=== PATIENT | female | born 1955 | race Caucasian/White ===

== ENCOUNTER → 2017-02-14 | Outpatient (CLI) | payer OTHER ==
[~2017-02-14] MED LIST: BUSP-8 PO; CALC1CHW57 PO; LORA-741 PO; MEDROXYPROGESTERONE PO; MULTTAB58 PO; OXYC15TA89 PO; RXC5 PO; TRAZ50TA35 PO
--- NOTE | 2017-02-14 15:07 | MAMMOGRAPHY REPORT ---
BILATERAL DIGITAL SCREENING MAMMOGRAM TOMOSYNTHESIS WITH CAD: 02/14/2017 CLINICAL HISTORY: Routine screening. Patient has no complaints. TECHNIQUE: Breast tomosynthesis in addition to standard 2D mammography was performed. Current study was also evaluated with a Computer Aided Detection (CAD) system. COMPARISON: Comparison is made to exams dated: 02/08/2016 mammogram, 11/03/2014 mammogram, 02/01/2014 ultrasound, 02/01/2014 mammogram, 12/23/2013 mammogram, and 12/19/2012 mammogram - [facility]. BREAST COMPOSITION: The tissue of both breasts is heterogeneously dense, which may obscure small ma sses. FINDINGS: No suspicious masses, calcifications, or areas of architectural distortion are noted in e ither breast. There has been no significant interval change compared to prior exams. IMPRESSION: ACR BI-RADS CATEGORY 1: NEGATIVE There is no mammographic evidence of malignancy. A 1 year screening mammogram is recommended. The p atient will receive written notification of the results. Approximately 10% of breast cancers are not detected with mammography. A negative mammographic repor t should not delay biopsy if a clinically suggestive mass is present. Susan Cristobal M.D. ah/:02/14/2017 14:22:07 Statue Maker: Zoë CAMPOS(R)(M), [facility] letter sent: Normal 1/2 BI-RADS Code: ACR BI-RADS Category 1: Negative
== END | disposition home or self-care (01) ==
LOC: C.MAMM 10:18
PROVIDERS: ATTEND Obstetrics & Gynecology
DX: Z12.31 Encounter for screening mammogram for malignant neoplasm of breast (principal)

== ENCOUNTER 2017-05-18 00:37 | Emergency (ER) | payer OTHER ==
[~2017-05-18] VITALS: Ht 172.7 cm; Wt 51.1 kg
[~2017-05-18 00:37] MED LIST changes: -BUSP-8 PO; -OXYC15TA89 PO; -TRAZ50TA35 PO
[2017-05-18 00:40] VITALS: TEMP 36.3; Ht 172.7 cm; Wt 51.1 kg
--- NOTE | 2017-05-18 01:36 | EMERGENCY ROOM VISIT NOTE ---
ED Visit Note First contact with patient: 00:39 CHIEF COMPLAINT: Wrist injury HISTORY OF PRESENT ILLNESS: This 61-year-old patient presents to the emergency department with complaining of pain in the left wrist after FOOSH tonight. The patient is barely to move their wrist. The patient states the pain is throbbing and 5/10. No laceration, no weakness. No numbness or tingling. The patient denies any other injury. The patient is able to move their fingers and elbow without difficulty. The patient has not had a previous fracture to this wrist. The patient has taken nothing for the pain. Patient sees Dr. Perez. REVIEW OF SYSTEMS: A 6 system review of systems was performed with positives and pertinent negatives in the HPI. ALLERGIES: Sulfa, reviewed MEDICATIONS: as below PMH: Neck surgery SOCIAL HISTORY: Drug use PHYSICAL EXAM: Vital Signs: Reviewed Nurse's notes, vital signs stable. GENERAL : Pleasant female, in no acute distress, but appears to be in pain, well- developed, well-neurished. NEURO: Alert and oriented to person place and time. Normal sensation to light and sharp touch. MUSCULOSKELETAL: There is a deformity of the left wrist. There is tenderness and edema over distal radius and ulna. There is snuff box tenderness. Range of motion is limited secondary to obvious deformity. There is no tenderness of the elbow, hand or fingers. [facility] strength 3/5. Radial pulse 2+. SKIN: Normal and intact. The hand is warm and well perfused with capillary refill less than 2 seconds. EMERGENCY DEPARTMENT COURSE: I examined the patient. An X-ray of the left wrist was reviewed by myself and attending and showed fracture of the distal radius and possible ulna. A volar splint was placed under my direction and the position was satisfactory. Neurovascular status rechecked and intact. Patient was advised to follow-up with orthopedics for definitive care for her fracture. She is advised to return to the ER immediately for severe pain, numbness, tingling, worsening signs or symptoms or as needed. The patient was discharged home in good condition. DIAGNOSIS: Wrist fracture, Left DISCHARGE INSTRUCTIONS & TREATMENT: DO NOT drive, drink alcohol, operate machinery, or perform dangerous activities today. You were given medications in the ER that can affect your ability to safely function or operate a vehicle. Oxycodone (OxyIR) 5mg: Take 1-2 pills every four hours for breakthrough pain. Avoid alcohol, operating machinery or dangerous equipment, working on ladders or roofs, DRIVING, or situations where being under the influence may be dangerous. It is recommended to use an ipai-rrl-oyiwrux stool softener such as Colace, 100mg twice daily while taking this medication to avoid constipation. Ibuprofen(Motrin, Advil) may be used for fever or pain. Use 400mg every six hours as needed. Take with food. Avoid using more than 1600mg in a 24 hour period. Do not use 1600mg per day for more than three consecutive days without physician direction. Prolonged inappropriate use can lead to stomach upset or ulcers. This medication can be taken if you need to drive, work, or perform activities which may be dangerous when taking narcotic pain medication. (AND/OR) Acetaminophen(Tylenol) may be used for fever or pain. Use 500mg every six hours as needed. Avoid using more than 2000mg in a 24 hour period. This medication can be taken if you need to drive, work, or perform activities which may be dangerous when taking narcotic pain medication. Ice compresses for 20 minutes at a time four times daily for 2-3 days. Rest and elevate your injury. Do not get the splint wet. If your splint feels excessively tight, you have worsening pain, develop numbness or tingling, or your digits appear blue, loosen the madiha wrap. Then reapply the madiha wrap gently without removing the splint. If your symptoms are not quickly relieved return to the ER for re- evaluation. Continue current medications. Return to the ER immediately for any numbness, tingling, severe pain, extreme swelling in the extremity or as needed. Call your Orthopedics Saturday to arrange follow up for your injury. Current/Historical Medications Scheduled Calcium W/ Vitamins D & K (Calcium + D), 1 TAB PO DAILY Multiple Vitamin (Multivitamin), 1 TAB PO DAILY Scheduled PRN Lorazepam (Ativan), 0.5 MG PO Q6H PRN for Anxiety/Agitation Allergies Coded Allergies: Succinylcholine (Verified Allergy, Severe, MALIGNANT HYPERTHERMIA, 03/11/14 ) Latex1 -Allergic Contact Dermititis (Unverified Allergy, Intermediate, RED SKIN, 03/11/14) Sulfa Drugs (Unverified Allergy, Mild, 03/11/14) Vital Signs Date Time Temp Pulse Resp B/P (MAP) Pulse Ox O2 Delivery O2 Flow Rate FiO2 05/18/17 00:40 36.3 73 18 122/78 94 Room Air Departure Information Referrals Kenisha Bustillos D.O. (PCP) Patient Instructions [facility]
[2017-05-18] MEDS ORDERED: OXYCODONE IR HOME PACK PO ONE (01:45)
[2017-05-18 01:53] VITALS: BP 108/70; PULSE 90; O2SAT 97
--- NOTE | 2017-05-18 07:09 | DIAGNOSTIC IMAGING REPORT ---
LEFT WRIST MIN 3 VIEWS ROUTINE CLINICAL HISTORY: Left wrist pain following fall. COMPARISON: None FINDINGS: There is a moderately displaced significantly angulated distal left radial fracture which extends through the metaphysis with intra-articular extension. This is consistent with a Colles' type fracture. There is dorsal tilt of the distal component. There is a displaced fracture of the ulnar styloid with a few adjacent tiny bone fragments. Carpal bones appear intact. Soft tissue swelling is noted. IMPRESSION: 1. Moderately displaced, comminuted distal left radial fracture with dorsal tilt of the distal component consistent with a Colles' fracture. 2. Displaced ulnar styloid fracture. Electronically signed by: Francisco Hoffman M.D. 05/18/2017 7:07 AM Dictated Date/Time: 05/18/2017 7:05 AM
[2017-05-19] MEDS ORDERED: TRAZ50TA35 PO (04:17)
[2017-05-19] MEDS ORDERED: BUSP-8 PO (04:17)
[2017-05-19] MEDS ORDERED: OXYC15TA89 PO (04:17)
== END 2017-05-18 01:57 | disposition home or self-care (01) ==
LOC: C.EDB 00:37
DX: S52.502A Unspecified fracture of the lower end of left radius, initial encounter for closed fracture (principal); X58.XXXA Exposure to other specified factors, initial encounter; Y93.89 Activity, other specified

== ENCOUNTER 2017-05-19 03:18 | Emergency (ER) | payer OTHER ==
[~2017-05-19] VITALS: Ht 167.6 cm; Wt 51.1 kg
[2017-05-19 03:23] VITALS: TEMP 36.8; Ht 167.6 cm; Wt 51.1 kg
[2017-05-19] MEDS ORDERED: OXYC15TA89 PO (04:17)
[2017-05-19] MEDS ORDERED: TRAZ50TA35 PO (04:17)
[2017-05-19] MEDS ORDERED: BUSP-8 PO (04:17)
--- NOTE | 2017-05-19 04:43 | EMERGENCY ROOM VISIT NOTE ---
ED Visit Note First contact with patient: 03:36 CHIEF COMPLAINT: Wrist and foot pain HISTORY OF PRESENT ILLNESS: This 61-year-old patient presents to the emergency department with complaining of pain in the left foot and right wrist after falling yesterday. The patient is able to move their wrist and foot and has been walking without difficulties. Patient states there is a bruise to the top of her foot. Patient seen here yesterday for a fracture to her left wrist. Dr. Perez will be doing surgery on this. The patient states the pain is mild and 2/10. No laceration, no weakness. No numbness or tingling. The patient denies any other injury. The patient is able to move their fingers and elbow without difficulty. The patient has not had a previous fracture to this wrist. The patient has taken OxyIR and Motrin for the pain. Patient denies ankle pain, knee pain, elbow pain, forearm pain. No hand pain or finger pain. REVIEW OF SYSTEMS: A 6 system review of systems was performed with positives and pertinent negatives in the HPI. ALLERGIES: Sulfa, reviewed MEDICATIONS: Reviewed PMH: Neck surgery SOCIAL HISTORY: No Drug use PHYSICAL EXAM: Vital Signs: Reviewed Nurse's notes, vital signs stable. GENERAL : Pleasant female, in no acute distress, but appears to be in pain, well- developed, well-neurished. NEURO: Alert and oriented to person place and time. Normal sensation to light and sharp touch. MUSCULOSKELETAL: There is no deformity of the right wrist. There is tenderness and edema over distal ulna. There is no snuff box tenderness. Range of motion is intact. There is no tenderness of the elbow, hand or fingers. Cushion Cover Inspector strength 5/5. Radial pulse 2+. There is no visual deformity of the left foot. There is no erythema, small contusion to the top of the foot. There is no warmth. There is minimal tenderness over the top of the foot. The range of motion of the foot is not limited secondary to pain. There is no tenderness over the plantar fascia. Dorsi flexion 5/5 and Plantar flexion 5/5. The skin is intact and there are no lacerations or puncture wounds. Dorsalis pedis pulse 2+. SKIN: Normal and intact. The hand is warm and well perfused with capillary refill less than 2 seconds. EMERGENCY DEPARTMENT COURSE: I examined the patient. An X-ray of the left foot and right wrist was reviewed by myself and attending and showed no fracture. Patient was advised to follow-up as scheduled with her orthopedists and to continue Tylenol, Motrin, splint and narcotics for severe pain. She is advised to return to the ER immediately for numbness, tingling, severe pain, worsening signs or symptoms or as needed. The patient was discharged home in good condition. DIAGNOSIS: #1 right wrist injury #2 left foot injury DISCHARGE INSTRUCTIONS & TREATMENT: As below Current/Historical Medications Scheduled Buspirone Hcl (Buspirone Hcl), 20 MG PO AMPM Trazodone Hcl (Trazodone), 50 MG PO HS Scheduled PRN Oxycodone Hcl (Oxycontin), 1 TAB PO UD PRN for Pain Allergies Coded Allergies: Succinylcholine (Verified Allergy, Severe, MALIGNANT HYPERTHERMIA, 05/19/17 ) Latex1 -Allergic Contact Dermititis (Unverified Allergy, Intermediate, RED SKIN, 05/19/17) Sulfa Drugs (Unverified Allergy, Mild, 05/19/17) Vital Signs Date Time Temp Pulse Resp B/P (MAP) Pulse Ox O2 Delivery O2 Flow Rate FiO2 05/19/17 03:23 36.8 69 18 120/77 97 Room Air Departure Information Referrals Kenisha Bustillos D.O. (PCP) Patient Instructions [facility]
[2017-05-19] MEDS ORDERED: OXYCODONE IR HOME PACK PO ONE (04:45)
[2017-05-19 04:53] VITALS: BP 126/78; PULSE 71; O2SAT 95
--- NOTE | 2017-05-19 06:07 | DIAGNOSTIC IMAGING REPORT ---
RIGHT WRIST MIN 3 VIEWS ROUTINE CLINICAL HISTORY: fall, pain Right trauma COMPARISON: None. DISCUSSION: The bones and joint spaces appear intact. There is no evidence of fracture, dislocation or bony disease. There is no evidence for soft tissue swelling. IMPRESSION: Negative study. The above report was generated using voice recognition software. It may contain grammatical, syntax or spelling errors. Electronically signed by: Deng Lou M.D. 05/19/2017 6:05 AM Dictated Date/Time: 05/19/2017 6:04 AM
--- NOTE | 2017-05-19 06:09 | DIAGNOSTIC IMAGING REPORT ---
LEFT FOOT MIN 3 VIEWS ROUTINE CLINICAL HISTORY: fall, left trauma COMPARISON: None. DISCUSSION: The bones and joint spaces appear intact. There is no evidence of fracture, dislocation or bony disease. There is no evidence for soft tissue swelling. IMPRESSION: Negative study. The above report was generated using voice recognition software. It may contain grammatical, syntax or spelling errors. Electronically signed by: Deng Lou M.D. 05/19/2017 6:07 AM Dictated Date/Time: 05/19/2017 6:07 AM
== END 2017-05-19 04:53 | disposition home or self-care (01) ==
LOC: C.EDB 03:19
DX: S69.91XA Unspecified injury of right wrist, hand and finger(s), initial encounter (principal); S69.92XA Unspecified injury of left wrist, hand and finger(s), initial encounter; W19.XXXA Unspecified fall, initial encounter; Z79.899 Other long term (current) drug therapy; Z88.2 Allergy status to sulfonamides; Z88.8 Allergy status to other drugs, medicaments and biological substances; Z91.040 Latex allergy status

== ENCOUNTER → 2017-07-22 | Outpatient (CLI) | payer OTHER ==
[~2017-07-22] MED LIST changes: +BUSP-8 PO; -CALC1CHW57 PO; -LORA-741 PO; -MEDROXYPROGESTERONE PO; -MULTTAB58 PO; +OXYC15TA89 PO; -RXC5 PO; +TRAZ50TA35 PO
== END | disposition home or self-care (01) ==
LOC: C.PAPS 14:02
PROVIDERS: ATTEND Obstetrics & Gynecology
DX: Z01.411 Encounter for gynecological examination (general) (routine) with abnormal findings (principal); R87.610 Atypical squamous cells of undetermined significance on cytologic smear of cervix (ASC-US); N95.2 Postmenopausal atrophic vaginitis

== ENCOUNTER → 2018-02-20 | Outpatient (CLI) | payer OTHER ==
--- NOTE | 2018-02-21 14:19 | MAMMOGRAPHY REPORT ---
BILATERAL DIGITAL SCREENING MAMMOGRAM TOMOSYNTHESIS WITH CAD: 02/20/2018 CLINICAL HISTORY: Routine screening. Patient has no complaints. TECHNIQUE: Breast tomosynthesis in addition to standard 2D mammography was performed. Current study was also evaluated with a Computer Aided Detection (CAD) system. COMPARISON: Comparison is made to exams dated: 02/14/2017 mammogram, 02/08/2016 mammogram, 11/03/2014 m ammogram, 02/01/2014 mammogram, 12/23/2013 mammogram, and 12/07/2011 mammogram - [facility]ter. BREAST COMPOSITION: The tissue of both breasts is heterogeneously dense, which may obscure small mas ses. FINDINGS: No suspicious masses, calcifications, or areas of architectural distortion are noted in ei ther breast. There has been no significant interval change compared to prior exams. IMPRESSION: ACR BI-RADS CATEGORY 1: NEGATIVE There is no mammographic evidence of malignancy. A 1 year screening mammogram is recommended. The pa tient will receive written notification of the results. Approximately 10% of breast cancers are not detected with mammography. A negative mammographic report should not delay biopsy if a clinically suggestive mass is present. Susan Cristobal M.D. ah/:02/20/2018 12:32:29 Change Management Expert: Theresa CAMPOS(R)(M), [facility] letter sent: Normal 1/2 BI-RADS Code: ACR BI-RADS Category 1: Negative
== END | disposition home or self-care (01) ==
LOC: C.MAMM 09:28
PROVIDERS: ATTEND Obstetrics & Gynecology
DX: Z12.31 Encounter for screening mammogram for malignant neoplasm of breast (principal)

== ENCOUNTER 2024-06-01 05:44 | Inpatient (IN) ==
--- NOTE | 2024-05-27 16:40 | Anesthesiology Consultation ---
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 She has very minimal nonspecific memory problems with normal neuropsychological testing. Recommendations: 1. Patient is doing well and we will keep same for now. 2. Call if worse otherwise follow-up in 1 year. Plan Details Consults Requested none [facility] internal medicine preop note: low to moderate risk for upcoming surgery History Surgery Operation Date: 06/01/24 10:05 Proposed Procedures p L4-L5 Decompression and Fusion, Spinal Cord Monitoring - Ankit Gordillo, Height/Weight Height: 5 ft 5 in Weight: 51.256 kg Allergies Allergy/AdvReac Type Severity Reaction Status Date / Time succinylcholine Allergy Severe MALIGNANT Verified 05/26/24 13:50 HYPERTHERMIA latex Allergy Intermediate RED SKIN Verified 05/26/24 13:51 Sulfa (Sulfonamide Allergy Mild Unknown Verified 05/26/24 13:51 Antibiotics) Medications Home Medications Medication Instructions Recorded Confirmed Last Taken alprazolam 0.5 mg tablet 0.5 mg PO .TAKE 1 TABLET DAILY 08/28/19 05/26/24 Unknown calcium carbonate (Calcium 500) 500 mg PO DAILY 08/28/19 05/26/24 Unknown doxycycline hyclate 100 mg capsule 100 mg PO QAM rosacea 08/28/19 05/26/24 Unknown multivitamin (Multiple Vitamins 1 tab PO DAILY 08/28/19 05/26/24 Unknown tablet) trazodone 50 mg tablet 50 mg PO HS sleep 09/02/19 05/26/24 Unknown Bacillus coagulans [Probiotic (B. 1 tab PO DAILY 08/05/23 05/26/24 Unknown coagulans)] vitamin E mixed 200 unit tablet 1 unit PO DAILY 08/05/23 05/26/24 Unknown estradiol 2 mg (7.5 mcg/24 hour) 1 vag ring vaginal Q90D #1 ea 03/06/24 05/26/24 Unknown vaginal ring (Estring) fluconazole 150 mg tablet 150 mg PO Q48H 6 days #3 tabs 03/13/24 05/26/24 Unknown smoynfjmeu-pzmfosufpkfgu-puetcaab 1 cap PO Q6H PRN pain #10 caps 03/21/24 05/26/24 Unknown 50 mg-300 mg-40 mg capsule (Fioricet) omega-3 fatty acids 1,000 mg PO DAILY 05/26/24 05/26/24 Unknown turmeric 400 mg capsule 400 mg PO QAM 05/26/24 05/26/24 Unknown Past Medical History Medical History (Updated 05/27/24 @ 16:38 by Brenden Casas MD) Encounter for pre-operative examination History of anesthesia reaction states d/t her Myotonia congenita succinylcholine is contraindicated and acts like a Malignant hyperthermia reaction *MH precautions used with 02/2014 ACDF done at [facility]* Anxiety Rosacea 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, [place] Neuro History of melanoma Atypical ductal hyperplasia of breast benign; hx breast bx Past Family History Family History Mother Anxiety Breast cancer Cancer Diabetes Tremor Colonic polyp Hypertension Colorectal cancer Brother Anxiety Multiple sclerosis Myotonia Grandmother (Maternal) Breast cancer Father Cancer Diabetes Hypertension Other History of melanoma Denies family history of Stroke Asthma Past Surgical History Surgical History Hx of colonoscopy Hx of breast augmentation Hx of blepharoplasty Hx of laparoscopy (1984) [facility] [place] - had a reaction similar to Malignant hyperthermia prior to having myotonia congenita dx History of surgery on wrist History of neck surgery C5- C6- full ROM History of Mohs micrographic surgery for skin cancer S/P tonsillectomy S/P shoulder surgery H/O cosmetic surgery S/P breast biopsy S/P dilatation and curettage Social History Smoking Status: Never smoker Do You Dip or Chew Tobacco: No Hx Alcohol Use: Yes alcohol intake frequency: a few times a week Hx Substance Use: Yes (very rare use- 1-2 times per year) substance use type: marijuana Last Used Substance Other:: ~8 mos ago Testing Laboratory Results Laboratory Tests 05/26/24 11:14 WBC 4.10 L Hgb 13.3 Hct 38.6 Plt Count 161 PT 10.4 INR 1.0 APTT 25 Sodium 136 Potassium 4.1 Chloride 101 Carbon Dioxide 29 BUN 15 Creatinine 0.90 Glucose 105 H Electrocardiogram Date: 05/26/24 DICTATED BY: Nas Villanueva MD Test Reason : Blood Pressure : */* mmHG Vent. Rate : 60 BPM Atrial Rate : 60 BPM P-R Int : 150 ms QRS Dur : 74 ms QT Int : 398 ms P-R-T Axes : 81 80 76 degrees QTcB Int : 398 ms Normal sinus rhythm Right atrial enlargement Borderline ECG When compared with ECG of 10-Mar-2014 15:42, MANUAL COMPARISON REQUIRED PREVIOUS ECG IS INCOMPATIBLE Confirmed by Nas Villanueva ([id number]) on 05/27/2024 8:26:30 AM
--- OUTSIDE RECORDS SUMMARY | 2024-06-01 05:49 | External Medical Summary | Summary of Care ---
Author Name Unknown Organization [facility] Address [address] [place] [address] Phone [phone] Care Team Providers Care Fun House Attendant Name Role Phone Kirk Snider MD Primary Care Provider + Encounter Details Date Type Department Care Team (Late st Contact Info) Description 05/28/2024 Orders Only General Internal Medicine [facility] [address] [place] [address] Kirk Snider MD [address] [facility] [place] [address] Allergies Active Allergy Reactions Criticality Noted Date Comments Adhesive Tape Rash 03/28/2016 Succinylcholine Chloride Cough 04/22/2008 Reaction as malignant hyperthermia.as myotonia congenita Latex 03/06/2014 Rash with topical. Sulfa Antibiotics Edema airway High 02/16/2013 documented as of this encounter (statuses as of 05/28/2024) Medications Medication Sig Dispensed Refills Start Date End Date Status ALPRAZolam (XANAX) 0.5 MG Tablet Take 1 Tablet by mouth. Take one tablet as needed for anxiety Active traZODone (DESYREL) 50 MG Tablet Take 1 Tablet by mouth at bedtime. Active XIIDRA 5 % SOLN 10/30/2017 Active fluticasone (FLONASE) 50 MCG/ACT nasal spray Administer 2 Sprays into each nostril daily. 1 Bottle 11 06/17/2019 Active Additional Information Patient not taking.Reported on 05/26/2024 Probiotic Daily Oral Capsule Take 1 Capsule by mouth in the morning. Active Azelaic Acid 15 % External Gel (Finacea)Indication s:Rosacea Apply to face daily 50 g 3 01/17/2021 Active metroNIDAZOLE 0.75 % External Cream (MetroCream) Apply topically to affected area 2 times a day. Apply to face 45 g 2 05/10/2021 Active Citracal Petites/Vitamin D 200-250 MG-UNIT Oral Tablet (Calcium Citrate-Vitamin D) Active Mometasone Furoate 0.1 % External Cream Apply to affected areas on body twice daily as needed 15 g 2 07/10/2022 Active Womens 50+ Multi Vitamin/Min Oral Tablet Take by mouth daily. Active Betamethasone Dipropionate Aug 0.05 % External Cream (Diprolene AF) Apply to affected area on chest twice daily 30 g 1 02/22/2023 Active Triamcinolone Acetonide 0.1 % External Lotion (Aristocort) Apply to affected area at central chest twice daily as needed 60 mL 02/28/2023 Active Tretinoin 0.05 % External Cream (Retin-A)Indication s:Rhytides Apply pea-sized amount to face nightly 45 g 5 02/28/2023 Active Ventolin HFA 108 (90 Base) MCG/ACT Inhalation Aerosol SolutionIndications :Acute bronchitis, antibiotics not indicated Inhale 2 Puffs by mouth every 4 hours as needed for Wheezing or Other (cough). 18 g 1 07/30/2023 Active Montelukast Sodium 10 MG Oral Tablet (Singulair)Indicati ons:Allergic sinusitis Take 1 Tablet by mouth at bedtime. 90 Tablet 1 07/30/2023 Active Additional Information Patient not taking.Reported on 12/10/2023 Estradiol 0.1 MG/GM Vaginal Cream (Estrace) 1 g. Use twice a week 11/18/2023 Active Betamethasone Dipropionate Aug 0.05 % External Cream (Diprolene AF) Apply to affected areas on trunk and extremities twice daily as needed 50 g 1 02/19/2024 Active Doxycycline Hyclate 50 MG Oral Capsule (Vibramycin)Indicat ions:Rosacea Take 1 capsule in the AM and 1 capsule in the PM for flares. Otherwise, take 1 capsule daily. 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 Atrial septal aneurysm 09/24/2018 Trace aortic regurgitation by prior echocardiogr am 09/08/2018 LOUIS (generalized anxiety disorder) 07/22/2018 History of basal cell carcinoma 02/16/2013 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 documented as of this encounter (statuses as of 05/28/2024) Immunizations Name Administration Dates Next Due COVID-19 mRNA, LNP-s, No Pre serve, 2-Dose Series ([employer]) 08/07/2021,01/06/2021,12/16/2020 COVID-19, MRNA-LNP, 23-24, P F, 30 MCG/0.3 mL, 12 YRS AND ABOVE, IM (PFIZER-Comirnaty) 08/12/2023 Covid-19, Mrna, Lnp-s, Pf, B ivalent, 30 Mcg, IM, 12 yrs and above (Pfizer) 07/04/2022 Pneumococcal Conjugate Vacci ne, 20-valent ([id number]) 07/30/2022 Seasonal Influenza Virus Vac cine, Unspecified Formulation 07/30/2022,07/27/2021,08/04/2020 Seasonal Influenza, PF, 6 M & above, IM , (FluLaval or Fluzone) 08/12/2023,07/27/2021,08/07/2018 Seasonal Influenza, Quadriva lent, No Preserve, IM 11/04/2017,11/01/2016 Seasonal Influenza, Quadriva lent, No Preserve, Mdck 08/04/2020,08/20/2019 Seasonal Influenza, Split, I IV3, With Preserve, Inj 07/16/2016,06/20/2015 TDAP (age 10 and older)(Boostrix) 02/01/2016 Zoster Vaccine Recombinant (Shingrix) 05/17/2018 ,02/07/2018 documented as of this encounter Social History Tobacco Use Types Packs/Day Years Used Date Smoking Tobacco: Never Smokeless Tobacco: Never Comments:no passive smoke Alcohol Use Standard Drinks/Week Comments Yes 0 (1 standard drink = 0.6 oz pur e alcohol) 7 drinks a week PHQ-2 Answer Date Recorded PHQ Adult Total Score 0 12/04/2022 Hunger Vital Sign Answer Date Recorded Within the past 12 months, y ou worried that your food would run out before you got the money to buy more. Never true 11/11/19 23 Within the past 12 months, t he food you bought just didn't last and you didn't have money to get more. Never true 11/11/2022 Utilities Answer Date Recorded Do you have trouble paying y our heating, water, or electric bill? (Adult - for ages 18 years and over) Not on file 04/07/2024 Is your family able to pay t he heat, water, or electric bill? (Household - for ages 0-17 years) Not on file 04/07/2024 Does your family have access to good internet? (Household - for ages 0-17 years) Not on file 04/07/2024 Social Connections Answer Date Recorded How often do you feel lonely or isolated from those around you? (Adult - for ages 18 years and over) Not on file 04/07/2024 Sex and Gender Information Value Date Recorded Sex Assigned at Female 04/28/2019 1:28 PM EDT Gender Identity Female 04/28/2019 1:28 PM EDT Sexual Orientation Straight 04/28/2019 1: 28 PM EDT Job Start Date Occupation Industry Not on file Not on file Not on file documented as of this encounter Plan of Treatment Upcoming Encounters Date Type Department Care Team (Latest Contact Info) Description 07/23/2024 1:00 PM EDT Office Visit Dermatology [facility] [address] [place] [address] Mellissa Samuel MD [address] [facility] [place] [address] 08/10/2024 3:00 PM EDT Imaging Radiology, [address] [place] [address] 09/04/2024 9:30 AM EST Hospital Encounter ENDO [facility], Endoscopy Room [facility] [address] [place] [phone] Main Benites MD [address] [place] [address] 09/04/2024 9:30 AM EST - 09/04/2024 10:00 AM EST Surgery ENDO [facility], Endoscopy Room [facility] [address] [place] [id number] Main Benites MD [address] [place] [address] COLONOSCOPY FLEXIBLE PROXIMAL DIAGNOSTIC 10/06/2024 8:00 AM EST Office Visit Rheumatology [place] [id number] [facility] [place] [address] Jose Hopper CRNP [address] [place] [address] [place] [address] 12/15/2024 8:40 AM EST Office Visit General Internal Medicine [facility] [address] [facility] [place] [address] Kirk Snider MD [address] [place] [address] 02/04/2025 1:30 PM EDT Office Visit Dermatology [place] [address] [facility] [place] [address] Mellissa Samuel MD [address] [place] [address] Scheduled Procedures Name Priority Associated Diagnoses Date/Ti me COLONOSCOPY FLEXIBLE PROXIMAL DIAGNOSTIC Recall Family history of colon cancer Family history of colonic polyps 09/04/2024 9:30 AM EST Health Maintenance Due Date Last Done Comments Cologuard 2002 Fecal Occult Blood Test 2002 Sigmoidoscopy 2002 Adult Wellness Visit 2023 Depression Monitoring 12/04/2023 12/04/2022 COVID-19 Vaccine ( season) 2023 08/12/2023, 08/12/2023, 07/04/2022, Additional history exists Colonoscopy 01/15/2024 01/14/2019, 12/20, 09/30/2013, Additional history exists Colorectal Cancer Screening 01/15/2024 Influenza Vaccine (FLU shot) (#1) 2024 08/12/2023, 08/12/2023, 08/12/2023, Additional history exists DXA Scan 07/02/2024 07/02/2022, 06/21, 06/01/2020, Additional history exists Mammogram 09/17/2024 09/17/2023, 08/22, 09/04/2022, Additional history exists DTaP,Tdap,and Td Vaccines (2 - Td or Tdap) 01/31/2026 02/01/2016 Lipid Panel 10/24/2028 10/24/2023, 09/20, 07/02/2022, Additional history exists Zoster Vaccines Completed 05/17/2018, 02/07/2018 RETIRED - COLONOSCOPY-EVERY 5 YRS AGES 18-100 Discontinued 01/14/2019, 01/14/2019, 09/30/2013, Additional history exists Pap Smear Discontinued 07/26/2022, 12/19, 07/22/2017, Additional history exists Pneumococcal Vaccine: 65+ Years Completed 07/30/2022 VITAMIN D LEVEL ONCE IN A LIFETIME-USE SMARTSET# [id number] Completed 10/24/2023, 10/08/2022, 07/02/2022, Additional history exists HPV (Gardasil) Vaccine Aged Out No lo nger eligible based on patient's age to complete this topic Hepatitis B Vaccine Aged Out No longe r eligible based on patient's age to complete this topic MENINGOCOCCAL (MENACTRA/MENVEO) Aged Out No longer eligible based on patient's age to complete this topic documented as of this encounter Medical Devices Not on filedocumented as of this encounter Procedures Procedure Name Priority Date/Time Associated Diagnosis Comments CHEMISTRY-OUTSIDE Routine 05/26/2024 documented in this encounter Results * (ABNORMAL) CHEMISTRY-OUTSIDE (05/26/2024) Not all results display below - see scan for full detail SCAN INCLUDES: BMP, HA1C, PT INR, PTT, CBC, UA, BLOOD TYPE AND SCREEN OUTSIDE LAB (SEE SCANNED REPORT) CREATININE-OUTSI DE LAB 0.90 0.6 - 1.2 MG/DL OUTSIDE LAB (SEE SCANNED REPORT) EGFR-OUTSIDE LAB 66.6 ML/MIN OUT SIDE LAB (SEE SCANNED REPORT) POTASSIUM-OUTSID E LAB 4.1 3.5 - 5.1 MMOL/L OUTSIDE LAB (SEE SCANNED REPORT) GLUCOSE-OUTSIDE LAB 105(A) 70 - 99 MG/DL OUTSIDE LAB (SEE SCANNED REPORT) HOURS FASTING OUTSID E LAB (SEE SCANNED REPORT) TRIGLYCERIDES-OU TSIDE LAB OUTSIDE LAB (SEE SCANNED REPORT) CHOLESTEROL-OUTS JORGITO LAB OUTSIDE LAB (SEE SCANNED REPORT) HDL-OUTSIDE LAB OUTS [place] LAB (SEE SCANNED REPORT) CHOL/HDL RATIO-OUTSIDE LAB OUTSIDE LAB (SEE SCANNED REPORT) LDL (CALCULATED)-OUT SIDE LAB OUTSIDE LAB (SEE SCANNED REPORT) LDL (DIRECT MEASURE)-OUTSIDE LAB OUTSIDE LAB (SEE SCANNED REPORT) HEMOGLOBIN, [id number] LAB 5.3 4.5 - 5.6 % OUTSIDE LAB (SEE SCANNED REPORT) PHOSPHORUS-OUTSI DE LAB OUTSIDE LAB (SEE SCANNED REPORT) PTH-OUTSIDE LAB OUTS JORGITO LAB (SEE SCANNED REPORT) MICROALBUMIN RATIO-OUTSIDE LAB OUTSIDE LAB (SEE SCANNED REPORT) PROTEIN, UA-OUTSIDE LAB NEGATIVE NEGATIVE OUTSIDE LAB (SEE SCANNED REPORT) HGB 13.3 12.0 - 16.0 G/DL OUTSIDE LAB (SEE SCANNED REPORT) 05/26/2024 Ankit Gordillo DO LABORATORY OUTSIDE LAB (SEE SCANNED REPORT) documented in this encounter Care Teams Fun House Attendant Relationship Specialty Start Date End Date Kirk Snider MD [address] [place] [address] PCP - General Internal Medicine 07/22/18 documented as of this encounter
--- OUTSIDE RECORDS SUMMARY | 2024-06-01 05:50 | External Medical Summary | Summary of Care ---
Author Name Unknown Organization [facility] Address [address] [facility] [place] [address] Phone [phone] Care Team Providers Care Sociocultural Anthropology Professor Name Role Phone Kirk Snider MD Primary Care Provider + Reason for Visit * Reason Comments pre-op exam Surgery with Dr. Lowell Gordillo on 06/01 for laminectomy infusion of L4/L5. Encounter Details Date Type Department Care Team (Late st Contact Info) Description 05/26/2024 2:40 PM EDT Office Visit General Internal Medicine [facility] [address] [facility] [place] [address] Heide Espinoza PA-C [address] [facility] [place] [address] Pre-op exam*; Spinal stenosis of lumbar region with neurogenic claudication; Spondylolisthesis of lumbar region Allergies Active Allergy Reactions Criticality Noted Date Comments Adhesive Tape Rash 03/28/2016 Succinylcholine Chloride Cough 04/22/2008 Reaction as malignant hyperthermia.as myotonia congenita Latex 03/06/2014 Rash with topical. Sulfa Antibiotics Edema airway High 02/16/2013 documented as of this encounter (statuses as of 05/26/2024) Medications Medication Sig Dispensed Refills Start Date [...] Active Azelaic Acid 15 % External Gel (Finacea)Indicati ons:Rosacea Apply to face daily 50 g 3 [...] 02/28/2023 Active Tretinoin 0.05 % External Cream (Retin-A)Indicati ons:Rhytides Apply pea-sized amount to face nightly 45 g 5 02/28/2023 Active Ventolin HFA 108 (90 Base) MCG/ACT Inhalation Aerosol SolutionIndicatio ns:Acute bronchitis, antibiotics not indicated Inhale 2 Puffs by mouth every 4 hours as needed for Wheezing or Other (cough). 18 g 1 07/30/2023 Active Montelukast Sodium 10 MG Oral Tablet (Singulair)Indica tions:Allergic sinusitis Take 1 Tablet by mouth at [...] Active Doxycycline Hyclate 50 MG Oral Capsule (Vibramycin)Indic ations:Rosacea Take 1 capsule in the AM and 1 capsule in the PM for flares. Otherwise, take 1 capsule daily. 360 Capsule 04/08/2024 Active acetaZOLAMIDE 125 MG Oral Tablet (Diamox)Indicatio ns:Altitude sickness prophylaxis Take one pill by mouth twice a day day before trip and take until at maximum altitude for 2 days 8 Tablet 12/10/2023 4 Discontinue d(Medicatio n List Clean Up) predniSONE 10 MG Oral Tablet (Deltasone) Take 6 tabs x 2 days,5 tabs x 2 days,4 tabs x 2 days,3 tabs x 2 days,2 tabs x 2 days,1 tab x 2 days 42 Tablet 02/19/2024 4 Discontinue d(Medicatio n List Clean Up) documented as of this encounter (statuses as of 05/26/2024) Active Problems Problem Noted Date Diagnosed Date [...] as of this encounter (statuses as of 05/26/2024) Resolved Problems Problem Noted Date Diagnosed Date Resolved Date Abnormal mammogram 05/10/2021 4 Major depressive disorder, r ecurrent, in partial remission 05/10/2021 12/10/2023 High risk for fracture due t o osteoporosis by DEXA scan 06/02/2020 12/04/2022 Major depressive disorder, s matthew episode, in partial remission 04/28/2019 12/10/2023 Diastolic dysfunction 09/08/20182019 Blepharitis of both eyes 03/15/201606/2019 ADVANCE DIRECTIVE INFORMATION 04/22/2008 10/23/2018 Overview: No, Advance Directive brochure given to patient. documented as of this encounter (statuses as of 05/26/2024) Immunizations Name Administration Dates Next Due COVID-19 mRNA, LNP-s, No Pre serve, 2-Dose Series ([employer]) 08/07/2021,01/06/2021,12/16/2020 COVID-19, MRNA-LNP, 23-24, P F, 30 MCG/0.3 mL, 12 YRS AND ABOVE, IM [email or web address] 08/12/2023 Covid-19, Mrna, Lnp-s, Pf, B ivalent, 30 Mcg, IM, 12 yrs and above (Pfizer) 07/04/2022 Pneumococcal Conjugate Vacci ne, 20-valent (Dtyelnd15) 07/30/2022 Seasonal Influenza Virus Vac cine, Unspecified [...] on file documented as of this encounter Last Filed Vital Signs Vital Sign Reading Time Taken Comments Blood Pressure 120/76 05/26/2024 2:42 PM EDT Pulse 66 05/26/2024 2:42 PM EDT Temperature 36.8 C (98.2 F) 05/26/2024 2:42 PM ED T Respiratory Rate 16 05/26/2024 2:42 PM EDT Oxygen Saturation 98% 05/26/2024 2:42 PM EDT Inhaled Oxygen Concentration - - Weight 52.5 kg (115 lb 11.2 oz) 05/26/2024 2:42 PM EDT Height 164.8 cm (5' 4.88") 05/26/2024 2:42 PM EDT Body Mass Index 19.32 05/26/2024 2:42 PM EDT documented in this encounter Progress Notes * Heide Espinoza PA-C - 05/26/2024 2:56 PM EDT Preoperative Risk Assessment Note NAME: Leny Cast : 1955 DATE: 05/26/2024 Preoperative Risk Assessment Note Referred by: Dr. Gordillo Pre-operative evaluation for: Laminectomy fusion of L4/5. Date of procedure: 06/01/24. Brief History of Present Illness: Leny Cast 68 year old female has a past medical history of Abnormal mammogram (05/10/2021), Anxiety, Basal cell carcinoma of skin, Blepharitis of both eyes with rosacea, Diastolic dysfunction (09/08/2018), High risk for fracture due to osteoporosis by DEXA scan (06/02/2020), Myotonia congenita, Rosacea, Trace aortic regurgitation by prior echocardiogram (09/08/2018), and Vitiligo. Major Risk Factors for Cardiac Events: History of GA, cardiac revascularization, cardiac bypass: No History of cerebrovascular accident or TIA: No History of systolic heart failure: No History of insulin-dependent diabetes: No History of chronic kidney disease (creatinine greater than 2): No Anesthesia History: Anesthesia reaction: Yes, 1985 - succinylcholine. Concern for malignant hyperthermia at the time but ended up with myotonia congenita. History of surgical complications: Denies. Personal history of venous thromboembolic disease: Denies. Functional Assessment: They can walk up a flight of stairs, walk two blocks at a moderate pace, do heavy house work like vacuuming, and grocery shop. The patient's functional status is good (greater than 4 METS). Can take care of self, such as eat, dress, or use the toilet=1MET Can walk to block or go up a flight of steps=4 METs Can do heave housework=4-10 METs Can participate in strenuous sports=>10 METs} Obstructive Sleep Apnea: History of JUDI? No Current active medical problems: I have review and updated past medical history, past surgical history, past family history and social history. Current Outpatient Medications Medication Sig Dispense Refill ALPRAZolam (XANAX) 0.5 MG Tablet Take 1 Tablet by mouth. Take one tablet as needed for anxiety traZODone (DESYREL) 50 MG Tablet Take 1 Tablet by mouth at bedtime. XIIDRA 5 % SOLN Probiotic Daily Oral Capsule Take 1 Capsule by mouth in the morning. Azelaic Acid 15 % External Gel (Finacea) Apply to face daily 50 g 3 metroNIDAZOLE 0.75 % External Cream (MetroCream) Apply topically to affected area 2 times a day. Apply to face 45 g 2 Citracal Petites/Vitamin D 200-250 MG-UNIT Oral Tablet (Calcium Citrate-Vitamin D) Mometasone Furoate 0.1 % External Cream Apply to affected areas on body twice daily as needed 15 g 2 Womens 50+ Multi Vitamin/Min Oral Tablet Take by mouth daily. Betamethasone Dipropionate Aug 0.05 % External Cream (Diprolene AF) Apply to affected area on chesttwice daily 30 g 1 Triamcinolone Acetonide 0.1 % External Lotion (Aristocort) Apply to affected area at central chest twice daily as needed 60 mL 0 Tretinoin 0.05 % External Cream (Retin-A) Apply pea-sized amount to face nightly 45 g 5 Ventolin HFA 108 (90 Base) MCG/ACT Inhalation Aerosol Solution Inhale 2 Puffs by mouth every 4 hours as needed for Wheezing or Other (cough). 18 g 1 Estradiol 0.1 MG/GM Vaginal Cream (Estrace) 1 g. Use twice a week Betamethasone Dipropionate Aug 0.05 % External Cream (Diprolene AF) Apply to affected areas on trunk and extremities twice daily as needed 50 g 1 Doxycycline Hyclate 50 MG Oral Capsule (Vibramycin) Take 1 capsule in the AM and 1 capsule in the PM for flares. Otherwise, take 1 capsule daily. 360 Capsule 0 fluticasone (FLONASE) 50 MCG/ACT nasal spray Administer 2 Sprays into each nostril daily. (Patient not taking: Reported on 05/26/2024) 1 Bottle 11 Montelukast Sodium 10 MG Oral Tablet (Singulair) Take 1 Tablet by mouth at bedtime. (Patient not taking: Reported on 12/10/2023) 90 Tablet 1 No current facility-administered medications for this visit. Review of Systems: Review of Systems Constitutional: Negative for chills and fever. Respiratory: Negative for shortness of breath. Cardiovascular: Negative for chest pain. Gastrointestinal: Negative for diarrhea, nausea and vomiting. Genitourinary: Negative for difficulty urinating and hematuria. Neurological: Negative for dizziness and headaches. Physical exam: BP 120/76 | Pulse 66 | Temp 36.8 C (98.2 F) (Tympanic) | Resp 16 | Ht 1.648 m (5' 4.88") | Wt 52.5 kg (115 lb 11.2 oz) | LMP 01/17/2010 | SpO2 98% | BMI 19.32 kg/m | BSA 1.55 m I have reviewed most recent labs and EKG. There are no diagnoses linked to this encounter. Revised Cardiac Risk Index (RCRI): 1. High-risk type of surgery (examples include vascular and any open intraperitoneal or intrathoracic procedures). No 2. History of ischemic heart disease (history of myocardial infarction or positive exercise test, current compliant of chest pain considered to be secondary to myocardial ischemia, use of nitrate therapy, or ECG with pathological Q waves; do not count prior coronary revascularization procedure unless one of the other criteria for ischemic heart disease is present). No 3. History of heart failure. No 4. History of cerebrovascular disease. No 5. Diabetes mellitus requiring treatment with insulin. No 6. Preoperative serum creatinine >2.0. No Pt has revised cardiac index score of No Risk Factors- 0.4% (95% CI: 0.1-0.8) for the surgery scheduled. Patient is low for the listed procedure. Heide Espinoza PA-C 05/26/2024 2:56 PM documented in this encounter Nursing Notes * Vero Aquino MED ASSIST - 05/26/2024 2:44 PM EDT Chief Complaint Patient presents with pre-op exam Surgery with Dr. Magdy Gordillo on 06/01 for laminectomy infusion of L4/L5. documented in this encounter Plan of Treatment Upcoming Encounters Date Type Department Care Team (Latest Contact Info) Description 07/23/2024 1:00 PM EDT Office Visit Dermatology [facility] [place] [address] [place] [id number] Mellissa Samuel MD [address] [place] [address] 08/10/2024 3:00 PM EDT Imaging Radiology, [address] [place] [address] 09/04/2024 9:30 AM EST Hospital Encounter ENDO [facility], Endoscopy Room [facility] [address] [place], [place] [id number] Main Benites MD [address] [place] [address] 09/04/2024 9:30 AM EST - 09/04/2024 10:00 AM EST Surgery ENDO [facility], Endoscopy Room [facility] [address] [place] [phone] Main Benites MD [address] [place] [address] COLONOSCOPY FLEXIBLE PROXIMAL DIAGNOSTIC 10/06/2024 8:00 AM EST Office Visit Rheumatology [address] [place] [address] Jose Hopper CRNP [address] [place] [address] [place] [address] 12/15/2024 8:40 AM EST Office Visit General Internal Medicine [facility] [address] [place] [address] Kirk Snider MD [address] [place] [address] 02/04/2025 1:30 PM EDT Office Visit Dermatology [facility] [address] [place] [address] Mellissa Samuel MD [address] [facility] [place] [address] Scheduled Procedures Name Priority Associated Diagnoses Date/Ti me COLONOSCOPY FLEXIBLE PROXIMAL DIAGNOSTIC Recall Family history of colon cancer Family history of colonic polyps 09/04/2024 9:30 AM EST Health Maintenance Due Date Last Done Comments Cologuard 2002 Fecal Occult Blood Test 2002 Sigmoidoscopy 2002 Depression Monitoring 12/04/2023 12/04/2022 COVID-19 Vaccine ( [...] D LEVEL ONCE IN A LIFETIME-USE SMARTSET# 90028 Completed 10/24/2023, 10/08/2022, 07/02/2022, Additional history exists [...] Not on filedocumented as of this encounter Visit Diagnoses Diagnosis Pre-op exam- Primary Preoperative examination, unspecified Spinal stenosis of lumbar region with neurogenic claudication Spinal stenosis, lumbar region, with neurogenic claudication Spondylolisthesis of lumbar region Acquired spondylolisthesis Family history of colon cancer Family history of malignant neoplasm of gastrointestinal tract Family history of colonic polyps documented in this encounter Care Teams Sociocultural Anthropology Professor Relationship Specialty Start Date End Date Kirk Snider MD [address] [facility] [place] [address] PCP - General Internal Medicine 07/22/18 documented as of this encounter
[2024-06-01] MEDS: LR 60ML/HR IV SCH (06:44)
[2024-06-01] MEDS: VANCOMYCIN HCL 750 MG in SODIUM CHLORIDE 0.9% 250 ML IV SCH (06:44)
[2024-06-01] MEDS: GABAPENTIN 300 MG CAP PO SCH (06:45)
[2024-06-01] MEDS: ACETAMINOPHEN 500 MG TAB PO SCH (06:45)
[2024-06-01] MEDS ORDERED: HYDROmorphone INJ 1 MG/ML SYRINGE IV PRN ×2 (06:53→12:15)
[2024-06-01] MEDS ORDERED: ePHEDrine sulfate 50 MG/ML AMP IV PRN (06:53)
[2024-06-01] MEDS ORDERED: PROMETHAZINE HCL 6.25 MG in SODIUM CHLORIDE 0.9% 50 ML IV PRN (06:53)
[2024-06-01] MEDS ORDERED: ATROPINE SULFATE 0.1 MG/ML 10ML SYR IV PRN (06:53)
[2024-06-01] MEDS ORDERED: ONDANSETRON INJ 2 MG/ML 2 ML VIAL IV PRN ×2 (06:53→12:15)
[2024-06-01] MEDS ORDERED: PROPOFOL IV EMULSION 10 MG/ML 100 ML VIAL IV ONE (07:12)
[2024-06-01] MEDS ORDERED: MIDAZOLAM HCL 1 MG/ML 2ML VIAL ONE (07:18)
[2024-06-01] MEDS ORDERED: fentaNYL citrate PF 100 MCG/2 ML VIAL ONE (07:18)
[2024-06-01] MEDS ORDERED: DexMEDEtomidine HCL IV 100 MCG/ML VIAL IV ONE (07:31)
[2024-06-01] MEDS ORDERED: LIDOCAINE 2% 20 MG/ML 5 ML SYR IV ONE (07:35)
[2024-06-01] MEDS ORDERED: diphenhydrAMINE 50 MG/ML VIAL ONE (07:35)
[2024-06-01] MEDS ORDERED: GLYCOPYRROLATE 0.2 MG/ML VIAL ONE ×2 (07:35→09:35)
[2024-06-01] MEDS ORDERED: ROCURONIUM BROMIDE 10 MG/ML 5 ML VIAL IV ONE ×2 (07:35→09:23)
[2024-06-01] MEDS ORDERED: ONDANSETRON INJ 2 MG/ML 2 ML VIAL ONE (07:35)
[2024-06-01] MEDS ORDERED: DEXAMETHASONE SOD INJ 4 MG/ML VIAL ONE (07:35)
[2024-06-01] MEDS ORDERED: PROPOFOL IV EMULSION 10 MG/ML 20 ML VIAL IV ONE (07:35)
--- NOTE | 2024-06-01 07:35 | History & Physical Bridge Note ---
Date of Service June 01, 2024 History & Physical Bridge Note I have examined the patient, reviewed the History & Physical and in the interval since the performance of the History & Physical I have noted the following changes of clinical significance: no changes noted
--- NOTE | 2024-06-01 07:36 | History & Physical Report ---
Date of Service June 01, 2024 Assessment & Plan (1) Neurogenic claudication due to lumbar spinal stenosis: Plan: L4-L5 decompression and fusion History of Present Illness Chief Complaint: For the back and leg pain Primary Care Provider: Kirk Snider MD This is a 70-year-old female well-known with presents with chronic persistent back and leg pain and failing course of nonoperative care is here for surgical intervention. Allergies Allergy/AdvReac Type Severity Reaction Status Date / Time succinylcholine Allergy Severe MALIGNANT Verified 06/01/24 06:12 HYPERTHERMIA latex Allergy Intermediate RED SKIN Verified 06/01/24 06:12 Sulfa (Sulfonamide Allergy Mild Unknown Verified 06/01/24 06:12 Antibiotics) Home Medications Medication Instructions Recorded Confirmed Type alprazolam 0.5 mg tablet 0.5 mg PO .TAKE 1 TABLET DAILY 08/28/19 06/01/24 History calcium carbonate (Calcium 500) 500 mg PO DAILY 08/28/19 06/01/24 History doxycycline hyclate 100 mg capsule 100 mg PO QAM rosacea 08/28/19 06/01/24 History multivitamin (Multiple Vitamins 1 tab PO DAILY 08/28/19 06/01/24 History tablet) trazodone 50 mg tablet 50 mg PO HS sleep 09/02/19 06/01/24 History Bacillus coagulans [Probiotic (B. 1 tab PO DAILY 08/05/23 06/01/24 History coagulans)] vitamin E mixed 200 unit tablet 1 unit PO DAILY 08/05/23 06/01/24 History estradiol 2 mg (7.5 mcg/24 hour) 1 vag ring vaginal Q90D #1 ea 03/06/24 06/01/24 Rx vaginal ring (Estring) fluconazole 150 mg tablet 150 mg PO Q48H 6 days #3 tabs 03/13/24 06/01/24 Rx wthhktlcmn-uctrdchyzpzsd-duyymtyj 1 cap PO Q6H PRN pain #10 caps 03/21/24 06/01/24 Rx 50 mg-300 mg-40 mg capsule (Fioricet) omega-3 fatty acids 1,000 mg PO DAILY 05/26/24 06/01/24 History turmeric 400 mg capsule 400 mg PO QAM 05/26/24 06/01/24 History calcium phosphate,dibasic 77 tab PO 06/01/24 History mg-vitamin D3 400 unit tablet Past Med/Surg History Problem List (Updated 06/01/24 @ 07:36 by Ankit Gordillo DO) Neurogenic claudication due to lumbar spinal stenosis Chronic vulvitis Abdominal bloating Anxiety disorder (Acute) Essential tremor (Acute) Facial pain (Acute) Hypercholesteremia (Acute) Memory changes (Acute) 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 (Acute) Rosacea (Acute) Postoperative state (Acute 03/11/14) Cervical stenosis of spine (Acute 03/11/14) Cervical radiculopathy (Acute) Medical History (Updated 06/01/24 @ 07:36 by Ankit Gordillo DO) Malignant hyperthermia Encounter for pre-operative examination History of anesthesia reaction states d/t her Myotonia congenita succinylcholine is contraindicated and acts like a Malignant hyperthermia reaction *MH precautions used with 02/2014 ACDF done at [facility]* Anxiety Rosacea 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, [place] [facility] History of melanoma Atypical ductal hyperplasia of breast benign; hx breast bx Surgical History Hx of colonoscopy Hx of breast augmentation Hx of blepharoplasty Hx of laparoscopy (1984) [facility] - had a reaction similar to Malignant hyperthermia prior to having myotonia congenita dx History of surgery on wrist History of neck surgery C5- C6- full ROM History of Mohs micrographic surgery for skin cancer S/P tonsillectomy S/P shoulder surgery H/O cosmetic surgery S/P breast biopsy S/P dilatation and curettage Family History Mother Anxiety Breast cancer Cancer Diabetes Tremor Colonic polyp Hypertension Colorectal cancer Brother Anxiety Multiple sclerosis Myotonia Grandmother (Maternal) Breast cancer Father Cancer Diabetes Hypertension Other History of melanoma Denies family history of Stroke Asthma Social History Smoking Status: Never smoker Second Hand Exposure: No; Do You Dip or Chew Tobacco: No; Tobacco Cessation Education Requested by Patient: No Hx Alcohol Use: Yes Hx Substance Use: Yes (very rare use- 1-2 times per year) Last Used Substance Other:: ~8 mos ago Preferred Language: Tajik Communication Ability: Effective Dermatological Surgeon Required: No Beliefs That Will Affect Care: None Current Living Situation: Spouse Other Information That Helps Us Care for You: No Feels Safe at Home: Yes Safety Concerns: Feels Safe At This Time Assistive Devices: None Physical Exam 2 Physical Exam: Patient is alert and oriented heart regular in rhythm Lungs clear Results & Data Results & Data Vital Signs (Past 12 Hours) Vital Signs Temp Pulse Resp BP Pulse Ox O2 Del Method 06/01/24 06:18 36.7 C 62 18 144/82 H 98 Room Air
[2024-06-01] MEDS: ceFAZolin 330 MG/ML 1 GM VIAL ONE (07:45)
[2024-06-01] MEDS: BUPIVACAINE/EPINEPHRINE 0.25% 1:200,000 30 ML VIAL ONE (08:11)
[2024-06-01] MEDS ORDERED: KETAMINE HCL 10MG/ML SYR ONE (08:30)
[2024-06-01] MEDS: FLOSEAL HEMOSTATIC MATRIX 10ML TOP ONE (09:32)
[2024-06-01] MEDS ORDERED: NEOSTIGMINE METHYLSULFATE 1 MG/ML 10ML VIAL ONE (09:35)
--- NOTE | 2024-06-01 09:51 | Operative Report ---
Post Operative Report Pre & Post Diagnosis Operation Date: 06/01/24 07:45 Pre-Op Diagnosis: Neurogenic claudication due to lumbar spinal stenosis Spondylolisthesis L4-5 Post-Op Diagnosis: same I identified the patient and participated in the time-out.: Yes Procedure Operation Date: 06/01/24 07:45 Actual Procedures 1. Lumbar decompression with bilateral medial facetectomies and foraminotomies L3-L4 L4-5. #2 posterior spinal fusion L4-5 #3 placed posterior instrumentation L4-5. #4 interbody fusion L4-L5. #5 placement of Spira 11 x 26 mm x 2 at L4-5. #6 placement locally harvested morselized autograft posterior gutters. #7 placement infuse collagen sponge, with Koros in the posterior lateral gutters and Morpheus bone graft interbody space. #8 placement of versa wrap on the exposed dura. Surgeon Ankit Gordillo DO Paedodontist None Estimated Blood Loss 100 Findings Consistent with Post-Op Diagnosis Specimens None Indications This is a 68-year-old female presents with severe spinal stenosis facet cyst and instability at L4-5 and is here for surgical intervention. Description of Procedure Patient met with identified informed consent obtained. Patient was then taken to the operative suite underwent intubation placed in a prone position on the Bryan table on top of the Esvin frame. All bony prominences well-padded eyes inspected to ensure no external pressure placed upon them. This point lumbar spine is prepped and draped in the normal sterile fashion. Sharp dissection with the assistance of Bovie cautery performed down to and exposing the lamina and transverse processes of L4-L5 bilaterally. Complete laminectomy of L4 was performed including bilateral medial facetectomies and foraminotomies addressing severe lateral recess stenosis and the massive facet cyst on the right. Also performed partial laminectomy of L3 with bilateral medial facetectomies to addr ess all subarticular neural compression. Pedicle screws were then placed at L4- L5 bilaterally with assistance of fluoroscopy by way of transforaminal approach on the right a discectomy of L4-L5 was performed endplates guided to subcortical bleeding bone and 11 x 26 mm Spira cage filled with Morpheus tapped in position. I then proceeded to the left transforaminal region at L4-L5. Again discectomy performed endplates guided to subcortical mean bone and a second 11 x 26 mm Spira cage filled with Morpheus bone graft tapped in position. The rods were then placed compressed locked in final position bilaterally. The transverse processes of L for L5 burred to subcortical bleeding bone. Infuse collagen sponge combined with Koros and local autograft placed in the posterior lateral gutters. Versa wrap placed on the exposed dura. 15 round ELIANA drain inserted. The incision was then closed with 1 Vicryl the fascia 2-0 Vicryl subcutaneously and 4 Monocryl for final skin closure. Steri-Strips sterile dressing placed. Patient waken taken to PACU stable condition. Please note spinal cord monitoring was utilized at the procedure no changes noted. Im ordering 20 grams of Triple [place]on Collagen Powder (TranSiC [id number]) to treat an incision wound that was caused by a spine procedure. The incision is approximately 2 cm(W) x 4 cm(L) into the joint (D) in size and is a full thickness wound. Triple Mendon collagen comes in 1 gram packets so 20 packets were ordered. Given the size of the wound, with light to moderate exudate I chose to order a 20 day supply. The patient will be provided instructions for proper application of the collagen wound kit. The patient will be asked to apply the collagen powder daily and then cover it with sterile dressings dispensed. Collagen was selected as I expect the collagen to attract monocytes and fibroblasts, act as a sacrificial substrate for MMPs, and ultimately proved a matrix for tissue and vessel growth. The collagen will act as a primary dressing in this scenario. It is medically necessary for proper healing of these wounds to improve bioavailability and contact with each wound surface, this is also to help prevent infection of wounds and promote healing ultimately leading to a better healing outcome and limit the risk of infection. I attest to the content of the Intraoperative Record and any orders documented therein. Any exceptions are noted below.
[2024-06-01] MEDS ORDERED: SUGAMMADEX SODIUM 200 MG/2 ML VIAL IV ONE (09:52)
[2024-06-01] MEDS: fentaNYL citrate PF 100 MCG/2 ML VIAL IV PRN (11:03)
[2024-06-01] MEDS ORDERED: NALOXONE HCL 0.4 MG/1 ML VIAL/CARP IV PRN (12:15)
[2024-06-01] MEDS ORDERED: ACETAMINOPHEN 1,000 MG/100 ML VIAL IV PRN (12:15)
[2024-06-01] MEDS ORDERED: DO NOT ADMINISTER PNEUMOCOCCAL VACCINE PRN (12:15)
[2024-06-01] MEDS ORDERED: bisacodyL 10 MG SUPP PR PRN (12:15)
[2024-06-01] MEDS ORDERED: LORazepam 0.5 MG in SYRINGE 0.25 ML IV PRN (12:15)
[2024-06-01] MEDS ORDERED: METOCLOPRAMIDE HCL INJ 5 MG/ML 2 ML VIAL IV PRN (12:15)
[2024-06-01] MEDS ORDERED: FAMOTIDINE 20 MG TAB PO PRN (12:15)
[2024-06-01] MEDS ORDERED: DO NOT ADMINISTER FLU VACCINE PRN (12:15)
[2024-06-01] MEDS ORDERED: NON-FORMULARY MEDICATION (Estradiol [Estring] 2 mg (7.5 mcg /24 hour) ring) PV SCH (12:15)
[2024-06-01] MEDS ORDERED: SOD PHOSPHATE/SOD BIPHOSPHATE ENEMA 132 ML BTL PR PRN (12:15)
[2024-06-01] MEDS ORDERED: HYDROmorphone INJ 0.5 MG/0.5 ML SYR IV PRN (12:15)
[2024-06-01] MEDS ORDERED: diphenhydrAMINE Capsule 25 MG CAP PO PRN (12:15)
[2024-06-01] MEDS ORDERED: PROMETHAZINE 12.5 MG/50.5 ML BAG IV PRN (12:15)
[2024-06-01] MEDS ORDERED: MAGNESIUM HYDROXIDE SUSP 30 ML UDC PO PRN (12:15)
[2024-06-01] MEDS ORDERED: hydrOXYzine HCl 25 MG TAB PO PRN (12:15)
[2024-06-01] MEDS ORDERED: ALUMINUM/MAGNESIUM SUSP 30 ML UDC PO PRN (12:15)
[2024-06-01] MEDS ORDERED: ONDANSETRON 4 MG OD TAB PO PRN (12:15)
[2024-06-01] MEDS: LACTATED RINGER'S 1,000 ML IV SCH (12:42)
[2024-06-01] MEDS ORDERED: BUTALBITAL/ACETAMIN/CAFFEINE TAB PO PRN (12:42)
--- NOTE | 2024-06-01 13:21 | Fluoroscopy Report ---
FL lumbar spine 2-3V CLINICAL HISTORY: L4-L5 DECOMPRESSION AND FUSION COMPARISON STUDY: MR lumbar spine 05/21/2024 FLUOROSCOPY TIME: 25.1 seconds FLUOROSCOPY IMAGES: 2 EXPOSURE DOSE: 11.65 mGy FINDINGS: Posterior interbody natalia and screw fusion hardware with discectomy noted at what is labeled the L4-L5 level. Hardware appears intact. No unexpected opaque foreign bodies identified. IMPRESSION: Fluoroscopic assistance as above. ACT 112: Negative or not required by law. Electronically signed by: Marcelnio Cormier M.D. 06/01/2024 1:19 PM
--- NOTE | 2024-06-01 13:46 | Hospitalist Consultation ---
Date of Consultation June 01, 2024 Assessment & Plan (1) S/P spinal surgery: This is a 68yo F with a PMH of myotonic congenita, mood disorder, history of diastolic dysfunction on 2D echo in 2018, osteoporosis, trace aortic regurg and other medical problems listed below who is POD #0 s/p Lumbar decompression and fusion surgery by Dr. Gordillo. POD #0 s/p Lumbar decompression with bilateral medial facetectomies and foraminotomies L3-L4 L4-5. #2 posterior spinal fusion L4-5 #3 placed posterior instrumentation L4-5. #4 interbody fusion L4-L5. #5 placement of Spira 11 x 26 mm x 2 at L4-5. #6 placement locally harvested morselized autograft posterior gutters. #7 placement infuse collagen sponge, with Koros in the posterior lateral gutters and Morpheus bone graft interbody space. #8 placement of versa wrap on the exposed dura by Dr. Gordillo. Per ortho for pain control, wound care, anticoagulation and activities Monitor H&H (pre-op hgb 13.3, EBL 100ml) Continue incentive spirometry, PT/OT when appropriate Continue vitamin D for osteoporosis (2) Anxiety disorder: Stable. Continue alprazolam daily PRN (3) Myotonia congenita: Follows with Dr. Nair. Seems to have tolerated gen anesthesia without issue. A&Ox3 during eval, vital signs stable DVT Ppx: SCDs Code status: FULL PCP: [facility] Dispo: Per primary service Patient seen in collaboration with Dr. Donohue. Please see addendum. I spent a total of 60 minutes coordinating, documenting, and providing care for this patient excluding time spent in the performance of separately billed services. Supervising Physician Co-Signing Physician Notes Attending Addendum: Case reviewed with the advanced practitioner. I have personally performed a history and physical examination on the patient. I have reviewed the advanced practitioner's documentation on the date of service referenced in note, and I agree with, and take responsibility for the plan of care. please refer to her notes for full details patient seen and examined, records reviewed by myself as well on exam, patient Seen resting in bed, resting bedside chair, having dinner In good spirits States she has ambulated in the hallways with no problems Feels good when walking Has some soreness in her lower back Has some mild dysphagia, but improving no other symptoms VS noted and reviewed oriented x3, not in distress, speaks in sentences with no effort nor accessory muscle use normal rate, regular rhythm, no murmurs clear breath sounds bilaterally non distended, soft, nontender no bipedal edema, erythema, warmth no neuro deficits all labs, imaging noted and reviewed ASSESSMENT AND PLAN Status post lumbar spine fusion Doing well overall Pain control, DVT prophylaxis per Dr. Gordillo Labs tomorrow History of myotonia congenita Reports some mild dysphagia but seems to be improving From endotracheal tube? Advised to alternate solids and liquids Monitor closely other diagnoses and plan of care as per advanced practitioner's notes Wero Donohue MD History of Present Illness Reason for Consultation: post op med mgmt Attending Physician: Ankit Gordillo DO History of Present Illness This is a 68yo F with a PMH of myotonic congenita, mood disorder, history of diastolic dysfunction on 2D echo in 2018, osteoporosis, trace aortic regurg and other medical problems listed below who is POD #0 s/p Lumbar decompression with bilateral medial facetectomies and foraminotomies L3-L4 L4-5. #2 posterior spinal fusion L4-5 #3 placed posterior instrumentation L4-5. #4 interbody fusion L4-L5. #5 placement of Spira 11 x 26 mm x 2 at L4-5. #6 placement locally harvested morselized autograft posterior gutters. #7 placement infuse collagen sponge, with Koros in the posterior lateral gutters and Morpheus bone graft interbody space. #8 placement of versa wrap on the exposed dura by Dr. Gordillo. Feeling well post-operatively with some surgical site pain as well as chronic R hip pain. Decreased tightness in thighs bilaterally post-op. No F/C, lightheadedness, CP, SOB, N/V, abd pain, dysuria, diarrhea or constipation. Allergies Allergy/AdvReac Type Severity Reaction Status Date / Time succinylcholine Allergy Severe MALIGNANT Verified 06/01/24 06:12 HYPERTHERMIA latex Allergy Intermediate RED SKIN Verified 06/01/24 06:12 Sulfa (Sulfonamide Allergy Mild Unknown Verified 06/01/24 06:12 Antibiotics) Home Medications Medication Instructions Recorded Confirmed Type alprazolam 0.5 mg tablet 0.5 mg PO .TAKE 1 TABLET DAILY 08/28/19 06/01/24 History calcium carbonate (Calcium 500) 500 mg PO DAILY 08/28/19 06/01/24 History doxycycline hyclate 100 mg capsule 50 mg PO QAM rosacea 08/28/19 06/01/24 History multivitamin (Multiple Vitamins 1 tab PO DAILY 08/28/19 06/01/24 History tablet) trazodone 50 mg tablet 50 mg PO HS sleep 09/02/19 06/01/24 History Bacillus coagulans [Probiotic (B. 1 tab PO DAILY 08/05/23 06/01/24 History coagulans)] vitamin E mixed 200 unit tablet 1 unit PO DAILY 08/05/23 06/01/24 History estradiol 2 mg (7.5 mcg/24 hour) 1 vag ring vaginal Q90D #1 ea 03/06/24 06/01/24 Rx vaginal ring (Estring) hxyeyjuhay-miphecwcnhgsn-lextvhlj 1 cap PO Q6H PRN pain #10 caps 03/21/24 06/01/24 Rx 50 mg-300 mg-40 mg capsule (Fioricet) omega-3 fatty acids 1,000 mg PO DAILY 05/26/24 06/01/24 History turmeric 400 mg capsule 400 mg PO QAM 05/26/24 06/01/24 History cholecalciferol (vitamin D3) 125 125 mcg PO BID 06/01/24 06/01/24 History mcg (5,000 unit) capsule oxycodone-acetaminophen 5 mg-325 1 tab PO Q8H #30 tabs 06/01/24 06/01/24 Rx mg tablet (Percocet) tramadol 50 mg tablet 50 mg PO Q6H PRN pain, moderate 06/01/24 06/01/24 Rx #30 tabs Patient History Medical History (Updated 06/01/24 @ 15:42 by Rain Reyes PA-C) Osteoporosis Malignant hyperthermia Encounter for pre-operative examination History of anesthesia reaction states d/t her Myotonia congenita succinylcholine is contraindicated and acts like a Malignant hyperthermia reaction *MH precautions used with 02/2014 ACDF done at [facility]* Anxiety Rosacea 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 [place] - had a reaction similar to Malignant hyperthermia prior to having myotonia congenita dx History of surgery on wrist History of neck surgery C5- C6- full ROM History of Mohs micrographic surgery for skin cancer S/P tonsillectomy S/P shoulder surgery H/O cosmetic surgery S/P breast biopsy S/P dilatation and curettage Family History Mother Anxiety Breast cancer Cancer Diabetes Tremor Colonic polyp Hypertension Colorectal cancer Brother Anxiety Multiple sclerosis Myotonia Grandmother (Maternal) Breast cancer Father Cancer Diabetes Hypertension Other History of melanoma Denies family history of Stroke Asthma Social History Smoking Status: Never smoker Second Hand Exposure: No; Do You Dip or Chew Tobacco: No; Tobacco Cessation Education Requested by Patient: No Hx Alcohol Use: Yes Hx Substance Use: Yes (very rare use- 1-2 times per year) Last Used Substance Other:: ~8 mos ago Preferred Language: Peruvian Communication Ability: Effective Experimental [employer] Space[employer] Required: No Beliefs That Will Affect Care: None Current Living Situation: Spouse Other Information That Helps Us Care for You: No Feels Safe at Home: Yes Safety Concerns: Feels Safe At This Time Assistive Devices: None Review of Systems Review of Systems: At least ten systems reviewed and negative except as noted in the HPI. Physical Exam Physical Exam: General Appearance: WD/WN, vitals as above, NAD, sitting up in bedside chair, pleasant, conversing easily Head: normocephalic, atraumatic Eyes: normal inspection ENT: external ear and nose normal Neck: normal visual inspection Respiratory: normal respiratory effort, lungs clear to auscultation, no wheeze, rales, rhonchi. No accessory muscle use Cardiovascular: regular rate, rhythm, normal peripheral pulses, no BLE edema. Vessels: no JVD Abdomen/GI: normal bowel sounds, soft, nontender, no hepatosplenomegaly Extremities/Musculoskeletal: +Did not visualize spinal dressing. + ELIANA drain with serosanguineous output. No cyanosis or clubbing, extremities motor strength 5/5 Neurologic: PERRL, CN's II-XI intact bilaterally and moves all extremities Psychiatric: A+Ox3, euthymic affect Skin: no rashes, normal color, warm/dry Results & Data Results & Data Vital Signs (Past 12 Hours) Vital Signs Temp Pulse Pulse Resp BP BP Pulse Ox 06/01/24 12:35 36.3 C L 55 L 16 120/83 95 06/01/24 12:05 36.2 C L 51 L 16 124/79 100 06/01/24 11:40 36.3 C L 54 L 16 117/83 99 06/01/24 11:20 53 L 17 119/66 99 06/01/24 11:10 50 L 16 114/62 100 06/01/24 11:00 61 12 104/80 98 06/01/24 10:50 36.2 C L 71 12 121/75 100 06/01/24 10:40 74 12 129/81 99 06/01/24 10:30 75 12 112/77 100 06/01/24 10:20 83 20 109/70 100 06/01/24 10:10 36.4 C L 60 12 105/72 100 06/01/24 06:18 36.7 C 62 18 144/82 H 98 O2 Del Method O2 Flow Rate 06/01/24 12:35 Room Air 06/01/24 12:05 Room Air 06/01/24 11:40 Room Air 06/01/24 11:20 Nasal Cannula 2 06/01/24 11:10 Nasal Cannula 2 06/01/24 11:00 Nasal Cannula 2 06/01/24 10:50 Nasal Cannula 2 06/01/24 10:40 Oxymask 2 06/01/24 10:30 Oxymask 5 06/01/24 10:20 Oxymask 5 06/01/24 10:10 Oxymask 5 06/01/24 06:18 Room Air
--- NOTE | 2024-06-01 15:26 | Anesthesiology Progress Note ---
Date of Service June 01, 2024 Anesthesia Post Procedure Vital Signs Vital Signs: Temp Pulse Pulse Resp BP BP Pulse Ox 06/01/24 14:52 36.4 C L 06/01/24 14:15 60 16 122/73 99 06/01/24 12:35 36.3 C L 55 L 16 120/83 95 06/01/24 12:05 36.2 C L 51 L 16 124/79 100 06/01/24 11:40 36.3 C L 54 L 16 117/83 99 06/01/24 11:20 53 L 17 119/66 99 06/01/24 11:10 50 L 16 114/62 100 06/01/24 11:00 61 12 104/80 98 06/01/24 10:50 36.2 C L 71 12 121/75 100 06/01/24 10:40 74 12 129/81 99 06/01/24 10:30 75 12 112/77 100 06/01/24 10:20 83 20 109/70 100 06/01/24 10:10 36.4 C L 60 12 105/72 100 06/01/24 06:18 36.7 C 62 18 144/82 H 98 O2 Del Method O2 Flow Rate 06/01/24 14:52 06/01/24 14:15 Room Air 06/01/24 12:35 Room Air 06/01/24 12:05 Room Air 06/01/24 11:40 Room Air 06/01/24 11:20 Nasal Cannula 2 06/01/24 11:10 Nasal Cannula 2 06/01/24 11:00 Nasal Cannula 2 06/01/24 10:50 Nasal Cannula 2 06/01/24 10:40 Oxymask 2 06/01/24 10:30 Oxymask 5 06/01/24 10:20 Oxymask 5 06/01/24 10:10 Oxymask 5 06/01/24 06:18 Room Air Pain Intensity Back: Pain Intensity: 3 Transfer of Care Handoff Completed per policy Notes Mental Status: alert / awake / arousable and participated in evaluation Patient Amnestic to Procedure: Yes Nausea / Vomiting: adequately controlled Pain: adequately controlled Airway Patency, RR, SpO2: stable & adequate BP & HR: stable & adequate Hydration State: stable & adequate Anesthetic Complications: no major complications apparent and Pt Satisfied with anesthetic care
[2024-06-01] MEDS: ceFAZolin 1000MG 1,000 MG/7.5 ML SYR IV SCH (15:52)
[2024-06-01] MEDS: traMADol HCL 50 MG TABLET PO PRN (17:12)
[2024-06-01] MEDS: oxyCODONE HCL IR 5 MG TAB (IMMEDIATE RELEASE) PO PRN (20:33)
[2024-06-01] MEDS: DOCUSATE SODIUM/SENNA 50/8.6MG TAB PO SCH (20:33)
[2024-06-01] MEDS: CHOLECALCIFEROL 125 MCG (5,000 UNITS) TAB PO SCH (20:33)
[2024-06-01] MEDS: traZODone HCL 50 MG TAB PO SCH (23:55)
[2024-06-02] MEDS: POLYETHYLENE (MIRALAX) 17 GM PACK PO SCH (04:59)
[2024-06-02] MEDS: COUGH DROP (SUGAR FREE) LOZ 24 LOZ/1 BOX BUCCAL ONE (05:08)
[2024-06-02 06:51] LABS: Basophils # (auto) 0.01 K/uL (0.00-0.20); Basophils % (auto) 0.1 %; Eosinophils # (auto) 0.01 K/uL (0.00-0.50); Eosinophils % (auto) 0.1 %; Hematocrit (blood only) 32.5 % (37.0-47.0); Hemoglobin 10.9 g/dl (12.0-16.0); Immature Granulocytes # (auto) 0.03 K/uL (0.01-0.20); Immature Granulocytes % (auto) 0.4 %; Lymphocytes # (auto) 1.26 K/uL (1.20-3.40); Lymphocytes % (auto) 15.9 %; Mean Corpuscular Hemoglobin 31.8 pg (25.0-34.0); Mean Corpuscular Hgb Conc 33.5 g/dL (32.0-36.0); Mean Corpuscular Volume 94.8 fL (80.0-100.0); Mean Platelet Volume 10.7 fL (9.4-12.4); Monocytes # (auto) 0.74 K/uL (0.11-0.59); Monocytes % (auto) 9.4 %; Neutrophils # (auto) 5.85 K/uL (1.40-6.50); Neutrophils % (auto) 74.1 %; Platelet Count 134 K/uL (130-400); RDW Coefficient of Variation 12.3 % (11.5-14.5); RDW Standard Deviation 42.8 fL (36.4-46.3); Red Blood Count 3.43 M/uL (4.20-5.40)
[2024-06-02 07:15] LABS: Calcium 9.2 mg/dl (8.6-10.3); Creatinine Clr Calc Pharmacy 57.3 ml/min; Est GFR (Non-African American) 76.8 ml/min; Potassium 4.6 mmol/L (3.5-5.1)
[2024-06-02] MEDS: MULTIVITAMIN TAB PO SCH (07:46)
[2024-06-02] MEDS: TOCOPHERYL, DL-ALPHA 400 UNITS 180 MG CAP PO SCH (07:46)
[2024-06-02] MEDS: dexAMETHasone 6 MG in SYRINGE 0 ML IV SCH (07:47)
[2024-06-02] MEDS: CALCIUM CARBONATE 1250MG TAB PO SCH (07:47)
[2024-06-02] MEDS: ACETAMINOPHEN 500 MG TAB PO PRN (08:02)
--- NOTE | 2024-06-02 08:07 | Orthopedic Progress Note ---
Date of Service June 02, 2024 Assessment & Plan (1) Neurogenic claudication due to lumbar spinal stenosis: Plan: Today we will initiate physical therapy monitor ELIANA output hopefully discharge home next few days. Admission and Anticipated Discharge Date Admission Date: June 01, 2024 Subjective Back pain controlled leg pain markedly improved Physical Exam Physical Exam: Patient is in bed. She is constricted testing. Has been up and ambulating earlier this morning. Results & Data Vital Signs (Past 12 Hours) Vital Signs Temp Pulse Resp BP BP Pulse Ox O2 Del Method 06/02/24 07:32 36.7 C 58 L 16 108/68 100 Room Air 06/02/24 04:00 37.1 C 76 16 102/70 96 Room Air 06/01/24 23:54 36.7 C 70 18 115/75 95 Room Air
[2024-06-02] MEDS ORDERED: BACILLUS COAGULANS PO SCH (09:00)
--- NOTE | 2024-06-02 10:32 | Hospitalist Progress Note ---
<Statement entered by Kevin Montgomery, - 06/02/24 11:37> I have seen and examined the patient and have discussed the case with the provider above. I have reviewed the advanced practitioner's documentation, and I agree with, and take responsibility for that plan of care. 10 minutes spent at bedside interacting with patient. Patient's doing quite well, ambulating the halls, states she already had 2000 steps this morning. Plan of care as outlined below and per attending Date of Service June 02, 2024 Assessment & Plan (1) S/P spinal surgery: (2) Postoperative anemia due to acute blood loss: Plan: Leny Cast is a 68y/o F with PMHx of myotonic congenita, mood disorder, history of diastolic dysfunction on 2D echo in 2018, osteoporosis, trace aortic regurgitation and other medical problems listed below who is POD #1 s/p lumbar decompression and fusion surgery performed by Dr. Gordillo on 06/01. Pre-Op Hgb 13.3 [05/26/24] & EBL: 100mL Monitor H/H for acute blood loss anemia and transfuse blood products PRN. Hgb downtrended to 10.9 today - will proceed w/ anemia work-up tomorrow AM. Per ortho for pain control, wound care, anticoagulation and activities. Continue incentive spirometry, PT/OT when appropriate as per ortho. Can continue w/ [employer] vitamin D supplementation for osteoporosis. (3) Anxiety disorder: Plan: Stable, can continue alprazolam daily PRN. (4) Myotonia congenita: Plan: Follows with Dr. Nair on an outpatient basis. Patient tolerating diet without issue, no dysphagia concerns. DVT Prophylaxis: SCDs - As per ortho spine team. Code Status: FULL CODE PCP: Kirk Snider MD Disposition: Per primary ortho spine team - anticipated d/c possibly tomorrow per conversation with patient this morning. Likely to have her ELIANA drained removed tomorrow - will follow. Patient seen in collaboration with Dr. Montgomery. Please see addendum. I spent a total of 25 minutes coordinating, documenting, and providing care for this patient excluding time spent in the performance of separately billed services. This included personally reviewing all current laboratories and imaging studies, medical reconciliation, outpatient chart review and discussion with specialists. Admission and Anticipated Discharge Date Admission Date: June 01, 2024 Subjective Patient seen and examined at bedside in room E307-1. She reports good pain control this morning, only some mild discomfort noted. She mentions that she was up and moving already yesterday without much issue. Has no acute concerns or questions this morning. She is eager to get moving with PT in order to improve her mobility. Review of Systems Review of Systems: At least ten systems reviewed and negative, except as noted in the subjective section. Physical Exam Physical Exam: General: WD/WN, vitals as above, NAD, sitting up in bed, very pleasant, conversing. A+Ox3, euthymic affect. HEENT: Normocephalic, atraumatic. PERRL, conjunctivae normal, anicteric sclerae. External ear and nose normal, oropharynx normal. Respiratory: Normal respiratory effort, lungs clear to auscultation, no wheeze, rales, rhonchi. No accessory muscle use. Cardiovascular: Regular rate, rhythm, no murmur, normal peripheral pulses, no BLE edema. Vessels: No JVD. Abdomen/GI: Normal bowel sounds, soft, nontender, no hepatosplenomegaly. Extremities/Musculoskeletal: No cyanosis or clubbing, extremities motor strength not formally tested, moves all extremities. Neurologic: EOMI, accommodation nl, no face palsy, no dysarthria, CN's II-XI not formally tested but appear grossly intact bilaterally. Skin: No rashes, normal color, warm/dry. Surgical site not directly visualized, bandaging intact. ELIANA drain x 1 intact and draining serosanguineous fluid. Results & Data Results & Data Vital Signs (Past 12 Hours) Vital Signs Temp Pulse Resp BP BP Pulse Ox O2 Del Method 06/02/24 07:32 36.7 C 58 L 16 108/68 100 Room Air 06/02/24 04:00 37.1 C 76 16 102/70 96 Room Air 06/01/24 23:54 36.7 C 70 18 115/75 95 Room Air Laboratory Results Short CBC 06/02/24 Range/Units 05:54 WBC 7.90 (4.8-10.8) K/ul Hgb 10.9 L (12.0-16.0) g/dl Hct 32.5 L (37.0-47.0) % Plt Count 134 (130-400) K/uL BMP 06/02/24 05:54 Sodium 140 Potassium 4.6 Chloride 105 Carbon Dioxide 29 BUN 12 Creatinine 0.80 Glucose 133 H Calcium 9.2 (3) Anxiety disorder Anxiety disorder type: unspecified anxiety disorder Qualified Code(s): F41.9 - Anxiety disorder, unspecified
[2024-06-02] MEDS: LORazepam 0.5 MG TAB PO PRN (23:45)
[2024-06-03 06:57] LABS: Hematocrit (blood only) 29.2 % (37.0-47.0); Hemoglobin 9.8 g/dl (12.0-16.0); Mean Corpuscular Hemoglobin 31.7 pg (25.0-34.0); Mean Corpuscular Hgb Conc 33.6 g/dL (32.0-36.0); Mean Corpuscular Volume 94.5 fL (80.0-100.0); Mean Platelet Volume 10.7 fL (9.4-12.4); Platelet Count 125 K/uL (130-400); RDW Coefficient of Variation 12.5 % (11.5-14.5); RDW Standard Deviation 43.2 fL (36.4-46.3); Red Blood Count 3.09 M/uL (4.20-5.40); White Blood Count 6.82 K/ul (4.8-10.8)
[2024-06-03 07:16] LABS: BUN Creatinine Ratio 19.1 (10-20); Calcium 8.8 mg/dl (8.6-10.3); Creatinine Clr Calc Pharmacy 67.4 ml/min; Est GFR (African American) 105.6 ml/min; Est GFR (Non-African American) 91.2 ml/min; Magnesium 2.1 mg/dl (1.7-2.4); Phosphorus 3.1 mg/dl (2.5-4.9)
[2024-06-03 07:35] LABS: Ferritin 85.6 ng/ml (8-388)
[2024-06-03 07:41] LABS: Folate (Folic Acid),Ser orPlas 18.02 ng/ml (>5.38)
[2024-06-03] MEDS: MAGNESIUM HYDROXIDE SUSP 30 ML UDC PO ONE (11:31)
--- NOTE | 2024-06-03 12:31 | Hospitalist Progress Note ---
Date of Service June 03, 2024 Assessment & Plan (1) S/P spinal surgery: (2) Postoperative anemia due to acute blood loss: Plan: Leny Cast is a 68y/o F with PMHx of myotonic congenita, mood disorder, history of diastolic dysfunction on 2D echo in 2018, osteoporosis, trace aortic regurgitation and other medical problems listed below who is POD #2 s/p lumbar decompression and fusion surgery performed by Dr. Gordillo on 06/01. Pre-Op Hgb 13.3 [05/26/24] & EBL: 100mL Monitor H/H for acute blood loss anemia and transfuse blood products PRN. Hgb still downtrending slight, now 9.8 today. Anemia work-up significant for low iron level. Given patient has not yet passed a BM, we will proceed with administering her a one time dose of milk of magnesia today. Will hold off on starting the patient on iron supplementation until her bowel habits return back to a normal schedule. Per ortho for pain control, wound care, anticoagulation and activities. Continue incentive spirometry, PT/OT. Can continue w/ [employer] vitamin D supplementation for osteoporosis. (3) Anxiety disorder: Plan: Stable, can continue alprazolam daily PRN. (4) Myotonia congenita: Plan: Follows with Dr. Nair on an outpatient basis. Patient tolerating diet without issue, no dysphagia concerns. DVT Prophylaxis: SCDs - As per ortho spine team. Code Status: FULL CODE PCP: Kirk Snider MD Disposition: Per primary ortho spine team - anticipated d/c possibly tonight or tomorrow per conversation with patient this morning. Likely to have her ELIANA drain removed today. Patient seen in collaboration with Dr. Bauer. Please see addendum. I spent a total of 20 minutes coordinating, documenting, and providing care for this patient excluding time spent in the performance of separately billed services. This included personally reviewing all current laboratories and imaging studies, medical reconciliation, outpatient chart review and discussion with specialists. Admission and Anticipated Discharge Date Admission Date: June 01, 2024 Supervising Physician Co-Signing Physician Notes Patient seen and examined independently. Patient reports constipation. She reports passing gas intermittently; no bowel movements yet. Recommended continued bowel regimen possibly suppository if no significant improvement. Milk of magnesia ordered. I have reviewed the advanced practitioner's documentation, and I agree with, and take responsibility for the plan of care I spent a total of 20 minutes coordinating, documenting, and providing care for this patient excluding time spent in the performance of separately billed services. All of the aforementioned completed while collaborating with the assigned advanced practitioner for a full treatment plan Subjective Patient seen and examined at bedside in room E307-1. Patient reports that she feels more sore this morning, but she has been up and moving quite a bit. She still has not yet passed a bowel movement since being post-op. Education provided regarding the use of additional medications for her bowel regimen. Review of Systems Review of Systems: At least ten systems reviewed and negative, except as noted in the subjective section. Physical Exam Physical Exam: General: WD/WN, vitals as above, NAD, walking around the room, very pleasant, conversing appropriately. A+Ox3, euthymic affect. HEENT: Normocephalic, atraumatic. PERRL, conjunctivae normal, anicteric sclerae. External ear and nose normal, oropharynx normal. Respiratory: Normal respiratory effort, lungs clear to auscultation, no wheeze, rales, rhonchi. No accessory muscle use. Cardiovascular: Regular rate, rhythm, no murmur, normal peripheral pulses, no BLE edema. Vessels: No JVD. Abdomen/GI: Normal bowel sounds, soft, nontender, no hepatosplenomegaly. Extremities/Musculoskeletal: No cyanosis or clubbing, extremities motor strength not formally tested, moves all extremities. Neurologic: EOMI, accommodation nl, no face palsy, no dysarthria, CN's II-XI not formally tested but appear grossly intact bilaterally. Skin: No rashes, normal color, warm/dry. Surgical site not directly visualized, bandaging intact. ELIANA drain x 1 intact and draining minimal serosanguineous fluid. Results & Data Results & Data Vital Signs (Past 12 Hours) Vital Signs Temp Pulse Resp BP Pulse Ox O2 Del Method 06/03/24 07:45 36.9 C 71 16 99/66 L 96 Room Air Laboratory Results Short CBC 06/03/24 Range/Units 06:11 WBC 6.82 (4.8-10.8) K/ul Hgb 9.8 L (12.0-16.0) g/dl Hct 29.2 L (37.0-47.0) % Plt Count 125 L (130-400) K/uL BMP 06/03/24 06:11 Sodium 140 Potassium 4.0 Chloride 106 Carbon Dioxide 29 BUN 13 Creatinine 0.68 Glucose 105 H Calcium 8.8 (3) Anxiety disorder Anxiety disorder type: unspecified anxiety disorder Qualified Code(s): F41.9 - Anxiety disorder, unspecified
--- NOTE | 2024-06-03 13:21 | Discharge Summary ---
Date of Service June 03, 2024 Admission HPI Per Admitting Provider This is a 70-year-old female well-known with presents with chronic persistent back and leg pain and failing course of nonoperative care is here for surgical intervention. Principal Diagnosis Lumbar spinal stenosis with neurogenic claudication Discharge Data Allergies Allergy/AdvReac Type Severity Reaction Status Date / Time succinylcholine Allergy Severe MALIGNANT Verified 06/01/24 06:12 HYPERTHERMIA latex Allergy Intermediate RED SKIN Verified 06/01/24 06:12 Sulfa (Sulfonamide Allergy Mild Unknown Verified 06/01/24 06:12 Antibiotics) Consultations 06/01/24 12:15 Consult Hospitalist Routine Procedures Performed Operation Date: 06/01/24 07:45 Actual Procedures p L4-L5 Decompression and Fusion with Spinal Cord Monitoring(Not Applicable) - Ankit Gordillo DO Ordered Studies 06/01/24 07:45 FL lumbar spine 2-3V Routine Hospital Course (1) Neurogenic claudication due to lumbar spinal stenosis: Patient underwent lumbar decompression fusion tolerated this well was taken to orthopedic floor postoperative. Postoperatively she progressed appropriately. Marked improvement in ambulation. Leg pain improved. ELIANA drain decreasing. Pain well-controlled. Subsidy discharged home. Discharge orders instructions from the chart for further review. Total Time Total Time Spent Total Time Spent (In Minutes): 20 minutes Discharge Plan Discharge Items Patient Disposition: Home - Self-Care Reason For Visit: Lumbar Spondylosis, Lumbar Region Spondylolisthesi Discharge Diagnosis: Lumbar spinal stenosis with radiculopathy Activity: As commented below Non-emergency contact: Primary Care Provider Call non-emergency contact if: you have any medication questions Follow-up/Referrals: Kirk Snider MD [Primary Care Provider] - Diet: Regular Addtl Attending Provider Instructions: ACTIVITY RECOMMENDATIONS: SELF CARE INSTRUCTIONS AFTER THORACIC/LUMBAR FUSIONS 1. You may walk to your tolerance. It is good exercise for your legs and back. Expect some back and intermittent leg aches and pains. 2. You may perform "counter-top" level activities (make a sandwich, brynn with a project, etc.). 3. No bending or lifting of more than 10 pounds or back twisting of any nature (roll like a log when turning in bed). 4. You may ride in a car for 20-30 minutes at a time. No driving until after your first visit with your doctor. 5. Frequent changes of position and restricting sitting to 30 minutes at a time will help limit the amount of back spasms and stiffness you may experience. 6. You may discontinue the use of ambulatory aids (cane, crutches, etc.) once your strength and confidence allow. 7. You may wind turbine performance engineer the shower and let water strike your incision when you arrive home at least once daily. Do not take a tub bath, sit in a hot tub or go into a swimming pool until after your first recheck in the office. SPECIAL CARE INSTRUCTIONS: VERY IMPORTANT TO READ AND REVIEW A. Your surgical incision has been closed with a cosmetic suture under the skin that will dissolve in about 6 weeks. In 14 days, you can use a pair of clean scissors and cut the suture that is left outside of the skin at the ends of your incision. 1. The small skin tapes can be removed 7 days after surgery if they have not fallen off by that point. 2. You may keep the wound open to air as much as possible to promote healing after post-op day number 5 unless told otherwise by your doctor. 3. If you think the wound looks like it is becoming infected (redness or worsening drainage) and/or you are experiencing fever, chill or worsening back pain and muscle spasms, contact the office so that we may evaluate you as soon as possible. B. Complications are uncommon, but please contact us if you have any signs or symptoms of: 1. wound infection (fever higher than 102.5 degrees F, redness, separation of wound, drainage, or increasing pain from the incision) 2. blood clots in legs (pain, swelling, redness and warmth in legs) 3. urinary tract infection (fever higher than 102.5 degrees F, burning upon urination or increased frequency of urination) 4. nerve problems (inability to walk on your toes or heels, numbness, loss of bowel or bladder control) 5. any other symptoms that concern you C. Please call the office at if you have any concerns or questions about your operation or recovery. D. No smoking! Smoking drastically decreases the chance of a solid fusion. E. Do not take any anti-inflammatory medications (Indocin, Advil, Motrin, Aspirin, Naprosyn, etc.) as these may inhibit the chance of a solid fusion. Tylenol is okay to take for pain. MANAGING PAIN AFTER SPINAL SURGERY 1. Narcotic medication is intended for short-term use and will be provided for surgical pain. Surgical pain usually lasts for a period of 4-6 weeks. Narcotic medication includes Percocet, Vicodin, Darvocet, Tylenol #3 or Lortab. 2. Longer-term pain is more appropriately treated with non-narcotic medication such as Tylenol ES. 3. Muscle spasm is not appropriately treated with narcotics. Muscle relaxers such as Soma, Flexeril or Skelaxin can be used along with Tylenol ES. 4. Remember that we all live with some "aches and pains". This is not unusual or uncommon after an injury or as we get older. a. Back pain is expected and may include muscle spasms for 4 to 6 weeks after surgery. The pain should gradually improve. If the pain worsens for no apparent reason, please contact the office. b. Intermittent leg pain may also be experienced and should not be concerned about unless it worsens for no apparent reason. If so, please contact the office. 5. We will provide appropriate medication within the normal guidelines of their prescribed use. We will also be very cautious and aware of potential abuse and extended duration of patients' medication needs. a. Pain medications are for your comfort and to assist with sleep and rest so that the tissue can heal. They are not provided in order to return to normal activity and should not be used through the day. To do so or worsening pain at night can result from ongoing tissue damage and development of tolerance to the prescribed medicine. 6. Please allow 2-3 days to process refills. Prescriptions will not be mailed but must be picked up at the office. FOLLOW UP VISIT: Keep your scheduled follow-up appointment. Any questions, please call the office at . Pending Studies at Discharge: No Stand-Alone Forms: [employer], Smoking Cessation Medications and DC Order Prescriptions: New tramadol 50 mg tablet 50 mg PO Q6H PRN (Reason: pain, moderate) Qty: 30 0RF oxycodone-acetaminophen [Percocet] 5-325 mg tablet 1 tab PO Q8H Qty: 30 0RF Continued Estring 2 mg (7.5 mcg /24 hour) ring 1 vag ring vaginal Q90D Qty: 1 3RF [id number] [Fioricet] 50-300-40 mg capsule 1 cap PO Q6H PRN (Reason: pain) Qty: 10 1RF vitamin E mixed 200 unit tablet 1 unit PO DAILY Bacillus coagulans [Probiotic (B. coagulans)] 1 tab PO DAILY doxycycline hyclate 100 mg capsule 50 mg PO QAM alprazolam 0.5 mg tablet 0.5 mg PO .TAKE 1 TABLET DAILY multivitamin [Multiple Vitamins] tablet 1 tab PO DAILY calcium carbonate [Calcium 500] 500 mg calcium (1,250 mg) tablet 500 mg PO DAILY trazodone 50 mg tablet 50 mg PO HS Fish Oil Capsule 1,000 mg PO DAILY turmeric 400 mg Capsule 400 mg PO QAM No Action cholecalciferol (vitamin D3) 125 mcg (5,000 unit) Capsule 125 mcg PO BID Rx Instructions: per Dr Gordillo x 4 weeks Discharge Orders: Discharge Order (Routine); Ordered 06/03/24 Ordered By: Ankit Gordillo Admission Data Admit Date/Time: 06/01/24 09:55 Attending Provider: Luis Bauer Admit Provider: Ankit Gordillo Primary Care Provider: Kirk Snider Other Providers: Wero Donohue; Kevin Montgomery
[2024-06-03] MEDS: bisacodyL 10 MG SUPP PR STA (14:11)
== END 2024-06-03 18:16 | disposition home or self-care (01) | DRG 454 ==
LOC: ASU 05:44 → 3E 09:55 → SUATTDRO 09:55
DX: Z79.899 Other long term (current) drug therapy; Z88.2 Allergy status to sulfonamides; K59.00 Constipation, unspecified; M54.16 Radiculopathy, lumbar region; G71.12 Myotonia congenita; R13.10 Dysphagia, unspecified; D62 Acute posthemorrhagic anemia; Z88.8 Allergy status to other drugs, medicaments and biological substances; M81.0 Age-related osteoporosis without current pathological fracture; M48.062 Spinal stenosis, lumbar region with neurogenic claudication; Z91.040 Latex allergy status; F41.9 Anxiety disorder, unspecified